=== PATIENT | female | born 1980 | race Caucasian/White ===

== ENCOUNTER 2019-05-23 05:36 | Inpatient (IN) | payer OTHER ==
[~2019-05-23 05:36] MED LIST: Acetaminophen 500 MG Tab PO ONE; Celecoxib 200 MG Cap PO ONE; ceFAZolin 2 GM in Premix Bag 1 BAG IV ONE
[2019-05-23] MEDS ORDERED: Dextrose 5%-Lactated Ringers 1,000 ML IV SCH ×2 (06:30→12:15)
[2019-05-23] MEDS ORDERED: Meropenem 500 MG SDV ONE (06:37)
[2019-05-23] MEDS ORDERED: fentaNYL 100 MCG/2 ML SDV ONE (06:50)
[2019-05-23] MEDS ORDERED: Propofol 200 MG/20 ML SDV ONE ×2 (06:51→06:57)
[2019-05-23] MEDS ORDERED: Midazolam 1 MG/ML 2 ML SDV ONE ×2 (06:51→06:57)
[2019-05-23] MEDS ORDERED: Neostigmine Methylsulfate 1 MG/ML 5 ML Syringe ONE (06:57)
[2019-05-23] MEDS ORDERED: fentaNYL 250 MCG/5 ML SDV ONE (06:57)
[2019-05-23] MEDS ORDERED: Dexamethasone 4 MG/ML SDV ONE (06:57)
[2019-05-23] MEDS ORDERED: Ondansetron 4 MG/2 ML SDV ONE (06:57)
[2019-05-23] MEDS ORDERED: Glycopyrrolate 0.2 MG/ML 5 ML MDV ONE (06:57)
[2019-05-23] MEDS ORDERED: Rocuronium 50 MG/5 ML Vial ONE (06:57)
[2019-05-23] MEDS ORDERED: Ketamine 500 MG/5 ML MDV IV SCH (07:45)
[2019-05-23] MEDS ORDERED: Ketamine 50 MG in Sodium Chloride 0.9% 49.5 ML IV SCH (07:45)
[2019-05-23] MEDS ORDERED: ceFAZolin 2 GM in Sodium Chloride 0.9% 50 ML IV ONE (08:00)
[2019-05-23] MEDS ORDERED: diphenhydrAMINE 25 MG Cap PO PRN (08:14)
[2019-05-23] MEDS ORDERED: Naloxone 0.4 MG/ML SDV IVPUSH PRN (08:14)
[2019-05-23] MEDS ORDERED: diphenhydrAMINE 50 MG/ML SDV IVPUSH PRN (08:14)
[2019-05-23] MEDS ORDERED: Ondansetron 4 MG/2 ML SDV IVPUSH PRN ×2 (08:14→13:00)
[2019-05-23] MEDS ORDERED: HYDROmorphone/Normal Saline 15 MG/30 ML PCA IV PRN (08:15)
[2019-05-23] MEDS ORDERED: Lidocaine 1% with EPINEPHrine 1:100,000 50 ML MDV ONE (08:52)
[2019-05-23] MEDS ORDERED: Bupivacaine 0.5% 50 ML MDV ONE (08:52)
[2019-05-23] MEDS ORDERED: Ketorolac 60 MG/2 ML SDV ONE (10:02)
[2019-05-23] MEDS ORDERED: Ondansetron 4 MG/2 ML SDV IVPUSH ONE (10:40)
[2019-05-23] MEDS ORDERED: Metoclopramide 10 MG/2 ML SDV IVPUSH ONE (10:57)
[2019-05-23] MEDS ORDERED: hydrOXYzine HCl 100 MG/2 ML SDV IM PRN (12:12)
[2019-05-23] MEDS ORDERED: hydrOXYzine HCl 25 MG Tab PO PRN (12:12)
[2019-05-23] MEDS ORDERED: Cyclobenzaprine 10 MG Tab PO PRN (12:13)
[2019-05-23] MEDS: Acetaminophen 500 MG Tab PO SCH ×2 (13:54→17:35)
[2019-05-23] MEDS: ceFAZolin 2 GM in Sodium Chloride 0.9% 50 ML IV SCH ×2 (14:59→21:43)
[2019-05-23] MEDS: Ketorolac 10 MG Tab PO SCH ×2 (15:00→22:43)
[2019-05-24] MEDS: Acetaminophen 500 MG Tab PO SCH ×3 (02:40→07:44)
[2019-05-24] MEDS: Ketorolac 10 MG Tab PO SCH (04:45)
[2019-05-24] MEDS: ceFAZolin 2 GM in Sodium Chloride 0.9% 50 ML IV SCH (05:58)
[2019-05-24] MEDS ORDERED: Magnesium Hydroxide 400 MG/5 ML Susp 30 ML Cup PO PRN (07:26)
--- NOTE | 2019-05-24 09:17 | DISCH ---
ADMISSION DIAGNOSES: 1. Incarcerated incisional hernia. 2. Incarcerated umbilical hernia. DISCHARGE DIAGNOSES: Exploratory laparotomy with lysis of abdominal adhesions and repair of recurrent incarcerated incisional hernia and incarcerated umbilical hernia with mesh and placement of Interceed mesh. Date of surgery: 05/23/2019. Surgeon: Ruddy Leon MD. HISTORY: Patience Callahan is a 38-year-old female with recurrent incarcerated incisional hernia and incarcerated umbilical hernia. After preoperative evaluation and discussion of possible risks and possible complications, she wished to proceed with surgical procedure. HOSPITAL COURSE: Patience had her surgery on 05/23/2019, and she was able to be discharged on 05/24/2019. Her pain was managed with Advil and Tylenol. She is breast-feeding and has pumped and thrown breast milk for 24 hours. Activity is good. Postop instructions were given and she was discharged to home. PHYSICAL EXAMINATION: GENERAL: Patience Callahan is a 38-year-old female. VITAL SIGNS: Height is 5 feet 6 inches, weight is 206 pounds. TPR 97.4, 81, 16, blood pressure 129/61. HEENT: Negative. NECK: Supple. HEART: Regular rate and rhythm. LUNGS: Clear. ABDOMEN: Dressings dry and intact. Abdominal binder is on. EXTREMITIES: Without peripheral edema. DISPOSITION: Discharged to home. CONDITION: Stable and improving. HOME MEDICATIONS: To continue Tylenol and Advil as needed for pain, and her multivitamin. Two doses of milk of magnesia were sent home with the patient. She is to take one today and one tomorrow to prevent constipation. FOLLOWUP APPOINTMENT: With Lisa Brody PA-C, on 06/02/2019 at 9 a.m. DIET: Usual diet as tolerated. Drink 8 to 10 glasses of water a day. ACTIVITY: No lifting greater than 10 pounds for 6 weeks. Other activity: Walk at least 6 times daily inside your house. Driving: Do not drive for 1 week. Shower/bathing: May shower. Keep operative site clean and dry. Wear abdominal binder with a pressure dressing over hernia site. Notify provider if any fever, increased pain, nausea, or vomiting, or drainage from incision. SPECIAL INSTRUCTIONS: Use incentive spirometer 10 times every hour while awake.
--- NOTE | 2019-05-29 14:06 | OR ---
DATE OF PROCEDURE: 05/23/2019 SURGEON: Ruddy Leon MD PREOPERATIVE DIAGNOSIS: Recurrent incisional hernia. POSTOPERATIVE DIAGNOSES: 1. Recurrent incarcerated incisional hernia. 2. Incarcerated umbilical hernia. OPERATIVE PROCEDURES: Exploratory laparotomy with lysis of adhesions and, 1. Repair of recurrent incarcerated incisional hernia with mesh (19275, [id number]). 2. Repair of incarcerated umbilical hernia with mesh (34236). 3. Placement of Interceed mesh to displace pelvic and abdominal walker from underlying viscera to limit recurrent adhesion formation ([id number]). ANESTHESIA: General. VISUAL ASSOCIATE: Lisa Brody PA-C. INDICATIONS FOR PROCEDURE: This is a 38-year-old female presenting with a large incisional hernia. This had been repaired previously. The plan is to proceed with an open repair. Repair of this size of the hernia would be such that a laparoscopic approach would likely result in an unstable abdominal wall and high rate of recurrence. The plan is to proceed with an open repair with mesh. Potential risks including bleeding, infection, injury to underlying viscera, problems with hernia recurring, or the mesh becoming infected were reviewed, and the patient wishes to proceed. Of note, the location of the hernia is well above the present location of the uterus and this repair would not likely interfere with subsequent pregnancies. DETAILS OF PROCEDURE: The patient was taken to the operating room and placed in a supine position. After general endotracheal anesthesia was induced, a Francisco catheter was inserted, and the abdomen prepped and draped. A midline incision which extended from the umbilicus to roughly handsbreadth superiorly toward the xiphoid was made and carried down through the skin and subcutaneous tissue. The hernia sac was then identified and dissected free down to the level of the fascia in all directions. The hernia sac was then opened, and the patient was noted to have some incarcerated omentum as well as some transverse colon adherent to hernia sac. These were then freed up from the hernia sac and were placed back into the peritoneal cavity. The hernia sac along with some attached omentum was then excised flush with the fascia. General exploration revealed an additional umbilical hernia, which had some incarcerated omentum within it as well. This was retracted downward and that along with some preperitoneal fat was then excised as well. A Ventrio ST hernia mesh measuring 13 x 17 cm was then selected and at roughly 5 cm intervals around the circumference, 2-0 Vicryl sutures were placed on the polypropylene side of the mesh. Small stab wounds were made in the abdominal wall where the mesh would be pulled up, thus fixing it well away from the areas of herniation. The mesh was then soaked in antibiotic-containing saline solution. This was then placed in intraperitoneal location. The upper half of the suture was then pulled up, thus fixing the mesh in that location. At that point, an Interceed mesh was placed underneath the mesh, as well down toward the pelvic and lower abdominal wall, to limit recurrent adhesion formation. The remaining sutures were then pulled up, thus fixing the mesh in position. Mesh was additionally fixed on its underlying shelf with titanium tacking screws to the abdominal wall. The midline fascia was then approximated with a #2 Vicryl stitch, subcutaneous tissue with 2 layers of 3-0 and 4-0 Vicryl stitch deep, and skin with kalpana. The patient had received bilateral transversus abdominis plane blocks and also fascia was anesthetized with 0.5% Marcaine mixed with lidocaine. After kalpana were applied, pressure dressing was placed. The patient was taken to the recovery room in satisfactory condition. Physician marketing support assistant, Lisa Brody, played an essential role in assisting in this case, helping to position the patient, retract structures as needed, as well as suturing and cutting sutures when indicated. Her presence improved patient safety and decreased the operative time. Ruddy Leon MD /[id number]
== END 2019-05-24 09:45 | disposition home or self-care (01) | DRG 355 ==
LOC: JP.SDSSCHI 05:36 → JP.SDS 05:36 → EDSTATUS 07:30 → JP.MS 09:45
PROVIDERS: ADMIT Surgery; ATTEND Surgery
PROC: 0WUF0JZ Supplement Abdominal Wall with Synthetic Substitute, Open Approach (ICD-10-PCS; principal; 2019-05-23)
PROC: 3E0M05Z Introduction of Adhesion Barrier into Peritoneal Cavity, Open Approach (ICD-10-PCS; 2019-05-23)
DX: K43.0 Incisional hernia with obstruction, without gangrene (principal); K42.0 Umbilical hernia with obstruction, without gangrene; K43.9 Ventral hernia without obstruction or gangrene; Z90.49 Acquired absence of other specified parts of digestive tract
CPT/HCPCS: 36415; 80053; 81025; 83735; 85027; 88302; 94762; A9270-GY; C1713; C1781; J0171; J0690; J1100; J1170; J1885; J2020; J2185; J2250; J2405; J2704; J2710; J2765; J2795; J3010; J3490; J7042; J7050